=== PATIENT | female | born 1980 | race Caucasian/White ===

== ENCOUNTER 2016-11-29 03:36 | Emergency (ER) | payer MEDICAID ==
[~2016-11-29 03:36] MED LIST: ACET1TAB23; AMOX500C2
--- NOTE | 2016-11-29 05:21 | NUR ---
PT IS IN BED RESTING COMFORTABLY, PT ON MONITOR, MD ROSA MADE AWARE WILL CONTINUE TO MONITOR.
--- NOTE | 2016-11-29 05:22 | NUR ---
SEE DOWN TIME FORM
--- NOTE | 2016-11-29 05:28 | NUR ---
PT AOX3, AMBULATORY TO RESTROOM. URINE COLLECTED. CALLED LAB FOR INJECTION OPERATOR.
--- NOTE | 2016-11-29 05:53 | NUR ---
Patient discharged to home in stable condition. Written and verbal after care instructions given. Patient verbalizes understanding of instruction.IV removed. Catheter intact and site benign. Pressure and 4x4 applied to site. No bleeding noted.
[2016-11-29 05:54] VITALS: BP 118/84
--- NOTE | 2016-11-29 05:57 | NUR ---
PT IS CURING AT STAFF AND REFUSING TO LEAVE THE BED SECURITY HAS BEEN CALLED AND IN THE ROOM NOW MADE AWARE
--- NOTE | 2016-11-29 06:25 | NUR ---
PT WALKED OUT OF THE ER WITH FAMILY [employer] WAS CALLED BUT PATIENT LEFT BEFORE THEY SHOWED UP
[2016-11-29 09:35] LABS: PROTHROMBIN TIME 9.5 SECS (9.5-12.7)
[2016-11-29 09:37] LABS: INR 0.91 (0.87-1.13)
[2016-11-29 09:39] LABS: HEMATOCRIT 36 % (33-45); MEAN CORPUSCULAR VOLUME 82 fL (82-100); RED BLOOD CELL COUNT(AUTO) 4.33 MIL/uL (4.0-5.2); WHITE BLOOD COUNT (AUTO) 5.3 K/uL (4.3-11.0)
[2016-11-29 09:40] LABS: BASOPHILS % (AUTO) 0.6 % (0.0-2.0); EOSINOPHILS # (AUTO) 0.2 /CMM (0.0-0.7); EOSINOPHILS % (AUTO) 3.3 % (0.0-6.0); LYMPHOCYTES # (AUTO) 1.8 /CMM (0.8-4.8); LYMPHOCYTES % (AUTO) 33.3 % (20.0-44.0); MEAN CORPUSCULAR HEMOGLOBIN 28 PG (26.0-33.0); MEAN CORPUSCULAR HGB CONC 34 g/dl (31.0-36.0); MONOCYTES # (AUTO) 0.3 /CMM (0.1-1.30); MONOCYTES % (AUTO) 6.2 % (2.0-12.0); NEUTROPHILS % (AUTO) 56.6 % (43.0-81.0); PLATELET COUNT (AUTO) 271 /CMM (150-450); RDW COEFFICIENT OF VARIATION 13.7 (11.5-15.0)
[2016-11-29 10:07] LABS: ALBUMIN 3.8 g/dL (3.4-5.0); BILIRUBIN,TOTAL 0.2 mg/dL (0.2-1.0); TOTAL PROTEIN, SERUM 7.7 g/dL (6.4-8.2)
[2016-11-29 10:08] LABS: CALCIUM, SERUM 9.2 mg/dL (8.5-10.1); CREATININE 0.8 mg/dL (0.6-1.3); POTASSIUM 4.1 mmol/L (3.5-5.1)
== END 2016-11-29 06:27 | disposition home or self-care (01) ==
LOC: ER 03:36
DX: R40.4 Transient alteration of awareness (principal); F10.129 Alcohol abuse with intoxication, unspecified; R79.1 Abnormal coagulation profile
CPT/HCPCS: 36415; 70450; 80053; 82550; 85025; 85610; 99285; A4606; G0480; Z7610

== ENCOUNTER 2019-03-13 17:32 | Emergency (ER) | payer SELFPAY ==
[~2019-03-13] VITALS: Ht 167.6 cm; Wt 71.7 kg
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
--- NOTE | 2019-03-13 18:07 | NUR ---
DR DOAN AT BEDSIDE
--- NOTE | 2019-03-13 18:12 | NUR ---
[employer] AT BEDSIDE FOR INVESTIGATION
[2019-03-13] MEDS ORDERED: diphenhydrAMINE HCL 50 MG/ML VIAL ONE (18:19)
[2019-03-13] MEDS ORDERED: OLANZAPINE 10 MG VIAL IM ONE ×2 (18:19→18:30)
--- NOTE | 2019-03-13 18:22 | NUR ---
PATIENT TRANSFERRED TO BED 6, RESTRAINTS APPLIED PER DR KEITH VERBAL ORDER.
[2019-03-13] MEDS ORDERED: diphenhydrAMINE HCL 50 MG/ML VIAL IM ONE (18:30)
[2019-03-13] MEDS ORDERED: IV NS 0.9% 1,000 ML BAG IV ONE (18:30)
[2019-03-13] MEDS ORDERED: ONDANSETRON HCL/PF 4 MG/2 ML VIAL IVP ONE (18:30)
--- NOTE | 2019-03-13 18:41 | NUR ---
PATIENT ASKED FOR A LITLLE OF TIME TO CALM DOWN BEFORE GIVEONG THE IM MEDICATION. PROVIDED PATIENT TIME TO CALM DOWN.
[2019-03-13] MEDS ORDERED: ONDANSETRON HCL/PF 4 MG/2 ML VIAL ONE (18:43)
--- NOTE | 2019-03-13 18:45 | NUR ---
PATIENT STATRTED TO BE VERBALLY AGGRESSIVE AGAIN, HOWEVER W 5-10 MINUTES OF CONVERSATION PATIENT CALMED DOWN AND ALLOWED IV INSERTION, BLOOD DRAW AND EKG.
--- NOTE | 2019-03-13 18:48 | NUR ---
PATIENT STATRTED TO BE VERBALLY AGGRESSIVE. DOESN'T WANT ANYBODY IN THE ROOM. DOESN'T ALLOW ANYBODY TO TOUCH HER.
[2019-03-13 18:54] LABS: BASOPHILS % (AUTO) 0.5 % (0.0-2.0); EOSINOPHILS % (AUTO) 0.8 % (0.0-6.0); HEMATOCRIT 39 % (33-45); HEMOGLOBIN 13.1 g/dL (11.5-14.8); LYMPHOCYTES # (AUTO) 1.7 /CMM (0.8-4.8); MEAN CORPUSCULAR HGB CONC 34 g/dl (31.0-36.0); MEAN CORPUSCULAR VOLUME 85 fL (82-100); MONOCYTES # (AUTO) 0.3 /CMM (0.1-1.30); MONOCYTES % (AUTO) 5.5 % (2.0-12.0); NEUTROPHILS # (AUTO) 3.7 /CMM (1.8-8.9); NEUTROPHILS % (AUTO) 64.2 % (43.0-81.0); PLATELET COUNT (AUTO) 243 /CMM (150-450); RED BLOOD CELL COUNT(AUTO) 4.58 MIL/uL (4.0-5.2); WHITE BLOOD COUNT (AUTO) 5.7 K/uL (4.3-11.0)
--- NOTE | 2019-03-13 18:54 | NUR ---
Douglas abbott in ED - 03/13/19 at 1940 by JAVAD PATIENT STATRTED TO BE VERBALLY AGGRESSIVE AGAIN, HOWEVER W 5-10 MINUTES OF CONVERSATION PATIENT CALMED DOWN AND ALLOWED IV INSERTION, BLOOD DRAW AND EKG.
--- NOTE | 2019-03-13 19:02 | NUR ---
URINE COLLECTED AND SENT TO LAB
[2019-03-13 19:11] LABS: CALCIUM, SERUM 9.4 mg/dL (8.5-10.1); CREATININE 0.8 mg/dL (0.6-1.3); POTASSIUM 3.5 mmol/L (3.5-5.1)
[2019-03-13 19:19] LABS: ALBUMIN 3.9 g/dL (3.4-5.0); BILIRUBIN,DIRECT 0.1 mg/dL (0.0-0.2); BILIRUBIN,TOTAL 0.3 mg/dL (0.2-1.0); SALICYLATE 0.2 mg/dL (2.8-20.0); TOTAL PROTEIN, SERUM 7.7 g/dL (6.4-8.2)
--- NOTE | 2019-03-13 19:33 | NUR ---
06 POISON CONTROL CALLED POISON CONTROL. INSTRUCTIONS THAT WERE LEFT. NV POSITIVE WILL BE NORMAL BE ON THE LOOKOUT FOR IRRITATION OF THROAT AND GI ISSUES. LOOKOUT FOR ELECTROLYTE IMBALANCE PO CHALLENGE AND LOOKOUT FOR SIGNIFICANT IRRITATION OF THROAT LOOKOUT FOR STRIDOR AND CHANGES TO VOICE, THERE MIGHT BE MADRIGAL. IF POSITIVE MADRIGAL CONSIDER GI CONSULT BASIC LABS METABOLIC PANNEL NOW LABS, URINE, TOXICOLOGY. PSYCH CONSULT IN 4 HOURS REPEAT METABOLIC PANNEL SO SHE DOESNT HAVE ELECTROLYTE IMBALANCE. 6 TOTAL HOURS POST [id number].
--- NOTE | 2019-03-13 19:35 | NUR ---
REPORT RECEIVED FROM DYAN ALEXIS FOR [facility]
[2019-03-13 19:40] LABS: APPEARANCE,URINE Clear (CLEAR); BILIRUBIN,URINE Negative (NEGATIVE); BLOOD, URINE Trace-lysed Ery/uL (NEGATIVE); COLOR,URINE Yellow (YELLOW); KETONES,URINE Negative (NEGATIVE); LEUKOCYTE ESTERASE ,URINE Negative (NEGATIVE); NITRITE, URINE Negative (NEGATIVE); PROTEIN,URINE Negative (NEGATIVE); UGLUCOSE Negative (NEGATIVE); UROBILINOGEN,URINE 0.2 EU/dL (0.2)
[2019-03-13 20:10] LABS: BACTERIA,URINE Few /HPF (None Seen); SQUAMOUS EPITHELIAL CELL,UR Few /HPF (None Seen); WBC,URINE 0-2 /HPF (0-3)
--- NOTE | 2019-03-13 21:45 | NUR ---
HOOD FITTER AT BEDSIDE FOR BLOOD DRAW. PT REFUSING AND BECOMING VERBALLY AGGRESSIVE. ATTEMPTED TO CALM PATIENT AND EXPLAIN REASON FOR REDRAW, PT REMAINS VERBALLY AGRESSIVE AND REFUSING BLOOD DRAW. MD LAU
--- NOTE | 2019-03-13 21:56 | NUR ---
posion control, spoke to vi-- rpt bmp x4hrs from initial, if everything normal. cleared from poison ctrl
[2019-03-13] MEDS ORDERED: LORAZEPAM INJ 2 MG/ML VIAL ONE (21:58)
[2019-03-13] MEDS ORDERED: LORAZEPAM INJ 2 MG/ML VIAL IM ONE (22:00)
[2019-03-13 22:49] LABS: CALCIUM, SERUM 8.5 mg/dL (8.5-10.1); CREATININE 0.7 mg/dL (0.6-1.3); POTASSIUM 3.9 mmol/L (3.5-5.1)
--- NOTE | 2019-03-14 00:39 | NUR ---
SYLVIA PT'S DAUGHTER [phone] GEORGE PT'S SON
--- NOTE | 2019-03-14 01:55 | NUR ---
CALLED [facility] FOR EVALUATION. ETA 1 HR
--- NOTE | 2019-03-14 02:56 | NUR ---
[facility] AT BEDSIDE FOR EVALAUTION
--- NOTE | 2019-03-14 04:02 | NUR ---
Patient discharged to home in stable condition. Written and verbal after care instructions given. Patient verbalizes understanding of instruction.IV removed. Catheter intact and site benign. Pressure and 4x4 applied to site. No bleeding noted.Pt ambulatory with a steady gait. Denies Hi/Si.
[2019-03-14 04:03] VITALS: BP 112/74
== END 2019-03-14 04:03 | disposition home or self-care (01) ==
LOC: ER 17:36
DX: T54.92XA Toxic effect of unspecified corrosive substance, intentional self-harm, initial encounter (principal); T14.91XA Suicide attempt, initial encounter; F10.129 Alcohol abuse with intoxication, unspecified; Y90.4 Blood alcohol level of 80-99 mg/100 ml; Z85.3 Personal history of malignant neoplasm of breast; Z85.850 Personal history of malignant neoplasm of thyroid; Z90.89 Acquired absence of other organs; Z79.899 Other long term (current) drug therapy; Y92.9 Unspecified place or not applicable
CPT/HCPCS: 36415 ×2; 71045; 80048 ×2; 80076; 80305; 80307 ×3; 80329; 81001; 85025; 93005; 96372 ×3; 96374; 99284; G0480; J1200; J2060; J2405; J3490; J7030; 81000-TC

== ENCOUNTER 2019-08-18 11:20 | Emergency (ER) | payer SELFPAY ==
[~2019-08-18] VITALS: Ht 165.1 cm; Wt 66.7 kg
[2019-08-18] MEDS ORDERED: IV NS 0.9% 1,000 ML BAG IV ONE (12:00)
[2019-08-18] MEDS ORDERED: MECLIZINE HCL 25 MG TABLET PO ONE (12:00)
[2019-08-18 12:05] LABS: BASOPHILS % (AUTO) 0.4 % (0.0-2.0); EOSINOPHILS % (AUTO) 3.1 % (0.0-6.0); HEMATOCRIT 38 % (33-45); HEMOGLOBIN 12.7 g/dL (11.5-14.8); LYMPHOCYTES # (AUTO) 1.3 /CMM (0.8-4.8); LYMPHOCYTES % (AUTO) 30.8 % (20.0-44.0); MEAN CORPUSCULAR HGB CONC 33 g/dl (31.0-36.0); MEAN CORPUSCULAR VOLUME 87 fL (82-100); MONOCYTES # (AUTO) 0.3 /CMM (0.1-1.30); MONOCYTES % (AUTO) 7.9 % (2.0-12.0); NEUTROPHILS # (AUTO) 2.4 /CMM (1.8-8.9); NEUTROPHILS % (AUTO) 57.8 % (43.0-81.0); PLATELET COUNT (AUTO) 230 /CMM (150-450); RED BLOOD CELL COUNT(AUTO) 4.42 MIL/uL (4.0-5.2); WHITE BLOOD COUNT (AUTO) 4.2 K/uL (4.3-11.0)
[2019-08-18] MEDS ORDERED: MECLIZINE HCL 25 MG TABLET ONE (12:06)
--- NOTE | 2019-08-18 12:18 | NUR ---
c/o dizziness x 3 days, "i feel like the room is spinning". PT AAOX4, VSS, RR EVEN & UNLABORED. DENIES CP, SOB, N/V AT THIS TIME. PT SEEN & EVAL'D BY DR. GUERRERO. MEDICATED ORDERED, PT PEDRO WELL. WILL CONT TO MONITOR.
[2019-08-18 12:28] LABS: CALCIUM, SERUM 8.8 mg/dL (8.5-10.1); CARBON DIOXIDE 27 mmol/L (21-32); CHLORIDE 103 mmol/L (98-107); CREATININE 0.8 mg/dL (0.6-1.3); GLUCOSE 87 mg/dL (74-106); POTASSIUM 4.9 mmol/L (3.5-5.1); SODIUM SERUM 138 mmol/L (136-145); UREA NITROGEN, BLOOD 13 mg/dL (7-18)
[2019-08-18] MEDS ORDERED: IOHEXOL-350 100 ML VIAL IV ONE (13:29)
[2019-08-18] MEDS ORDERED: CT SWABBABLE VALVE TRANS SET 1 EA INFUS.SET MC ONE (13:30)
[2019-08-18] MEDS ORDERED: IV NS 0.9% 250 ML IV ONE (13:30)
[2019-08-18 13:33] LABS: APPEARANCE,URINE Clear (CLEAR); BILIRUBIN,URINE Negative (NEGATIVE); BLOOD, URINE Negative Ery/uL (NEGATIVE); COLOR,URINE Yellow (YELLOW); KETONES,URINE Negative (NEGATIVE); LEUKOCYTE ESTERASE ,URINE Negative (NEGATIVE); NITRITE, URINE Negative (NEGATIVE); PH,URINE 7.5 (5.0-8.0); PROTEIN,URINE Negative (NEGATIVE); UGLUCOSE Negative (NEGATIVE); UROBILINOGEN,URINE 0.2 EU/dL (0.2)
[2019-08-18] MEDS ORDERED: LORAZEPAM INJ 2 MG/ML VIAL IV ONE (14:00)
[2019-08-18] MEDS ORDERED: LORAZEPAM INJ 2 MG/ML VIAL ONE (14:07)
--- NOTE | 2019-08-18 14:10 | NUR ---
PT TO CT ON [place]
--- NOTE | 2019-08-18 14:33 | NUR ---
PT BACK FROM CT. MEDICATED PER ERMD ORDER, PT PEDRO WELL.
--- NOTE | 2019-08-18 15:32 | NUR ---
Patient discharged to home in stable condition. Written and verbal after care instructions given. Patient verbalizes understanding of instruction. IV removed. Catheter intact and site benign. Pressure and 4x4 applied to site. No bleeding noted.
[2019-08-18 15:44] VITALS: BP 126/74
== END 2019-08-18 15:45 | disposition home or self-care (01) ==
LOC: ER 11:24
DX: R42 Dizziness and giddiness (principal); R11.2 Nausea with vomiting, unspecified; E03.9 Hypothyroidism, unspecified; Z98.890 Other specified postprocedural states; Z79.899 Other long term (current) drug therapy; Z85.3 Personal history of malignant neoplasm of breast
CPT/HCPCS: 36415; 70450; 70496; 70498; 71045; 80048; 81001; 84484; 84703; 85025; 85730; 96361; 96374; 99285; J2060; J7030; J7050; J8597; Q9967; 81000-TC

== ENCOUNTER 2019-09-11 23:33 | Emergency (ER) | payer SELFPAY ==
[~2019-09-11] VITALS: Ht 165.1 cm; Wt 59.0 kg
[2019-09-12] VITALS: BP 118/87
--- NOTE | 2019-09-12 00:26 | NUR ---
EMT AT BEDSIDE FOR WOUND CARE
[2019-09-12] MEDS ORDERED: oxyCODONE/APAP (5/325 MG) 1 UDTAB TABLET ONE ×2 (00:29→03:02)
[2019-09-12] MEDS ORDERED: TDAP [DIPH/PERTUSSIS/TET] 0.5 ML VIAL IM ONE ×2 (00:29→00:30)
[2019-09-12] MEDS ORDERED: oxyCODONE/APAP (5/325 MG) 1 UDTAB TABLET PO ONE ×2 (00:30→03:00)
--- NOTE | 2019-09-12 00:40 | NUR ---
XRAY AT BEDSIDE
[2019-09-12] MEDS ORDERED: LIDOCAINE /MPF 1% VIAL 5 ML VIAL ONE (00:53)
[2019-09-12] MEDS ORDERED: MORPHINE SULFATE INJ 4 MG/ML DISP.SYRIN ONE (01:38)
[2019-09-12] MEDS ORDERED: MORPHINE SULFATE INJ 2 MG/ML DISP.SYRIN ONE (01:38)
[2019-09-12] MEDS ORDERED: LIDOCAINE 1%-EPI 1:100,000 20 ML VIAL ONE (01:39)
[2019-09-12] MEDS ORDERED: LIDOCAINE HCL/MPF 1% 30 ML VIAL IJ ONE (01:41)
--- NOTE | 2019-09-12 01:46 | NUR ---
MORHPINE 6MG IM VERBAL ORDER PER MD TAN ORDER.
[2019-09-12] MEDS ORDERED: MORPHINE SULFATE INJ 2 MG/ML DISP.SYRIN IV ONE (02:00)
[2019-09-12] MEDS ORDERED: MORPHINE SULFATE INJ 2 MG/ML DISP.SYRIN IM ONE (02:00)
--- NOTE | 2019-09-12 02:28 | NUR ---
DR MADDOX AT BEDSIDE
--- NOTE | 2019-09-12 03:09 | NUR ---
Patient discharged to home in stable condition. Written and verbal after care instructions given. Patient verbalizes understanding of instruction. PT ambulatory with a steady gait
== END 2019-09-12 03:10 | disposition home or self-care (01) ==
LOC: ER 23:36
DX: S61.310A Laceration without foreign body of right index finger with damage to nail, initial encounter (principal); Z98.890 Other specified postprocedural states; Z85.3 Personal history of malignant neoplasm of breast; W23.0XXA Caught, crushed, jammed, or pinched between moving objects, initial encounter; Y93.89 Activity, other specified; Y92.89 Other specified places as the place of occurrence of the external cause; Y99.8 Other external cause status
CPT/HCPCS: 11760; 73130; 90471; 90715; 96372; 99285; A6403; J2270 ×2; J3490 ×3

== ENCOUNTER 2021-04-14 21:09 | Emergency (ER) | payer OTHER ==
[~2021-04-14] VITALS: Ht 165.1 cm; Wt 54.4 kg
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
[2021-04-14] MEDS ORDERED: BACITRACIN ZINC OINT PACKET 1 EA PACKET TP ONE (21:43)
[2021-04-14] MEDS ORDERED: TDAP [DIPH/PERTUSSIS/TET] 0.5 ML VIAL IM ONE ×3 (21:43→22:00)
[2021-04-14] MEDS ORDERED: BACI/NEOM/POLY B OINT PKT 1 UDPKT PACKET ONE (21:46)
[2021-04-14] MEDS ORDERED: HYDROCODONE/APAP 5/325MG TABLET ONE (21:46)
--- NOTE | 2021-04-14 21:49 | NUR ---
WOUND CARE DONE TO PATIENT'S RIGHT FOOT
[2021-04-14] MEDS ORDERED: BACI/NEOM/POLY B OINT PKT 1 UDPKT PACKET TP ONE (22:00)
[2021-04-14] MEDS ORDERED: HYDROCODONE/APAP 5/325MG TABLET PO ONE (22:00)
--- NOTE | 2021-04-14 22:02 | NUR ---
[employer]ICE INSTALLER AT PT'S BEDSIDE
[2021-04-14] MEDS ORDERED: CIPR-262 PO (22:50)
--- NOTE | 2021-04-14 23:54 | NUR ---
Patient discharged to home in stable condition. rx Written and verbal after care instructions given. Patient verbalizes understanding of instruction.
[2021-04-15 01:08] VITALS: BP 154/98
== END 2021-04-14 23:50 | disposition home or self-care (01) ==
LOC: ER 21:11
DX: S91.331A Puncture wound without foreign body, right foot, initial encounter (principal); Z98.890 Other specified postprocedural states; W22.8XXA Striking against or struck by other objects, initial encounter; Y93.89 Activity, other specified; Y92.89 Other specified places as the place of occurrence of the external cause; Y99.8 Other external cause status
CPT/HCPCS: 73630-TC; 90715

== ENCOUNTER 2021-06-18 03:42 | Emergency (ER) | payer OTHER ==
[~2021-06-18 03:42] MED LIST changes: +CIPR-262 PO
== END 2021-06-18 04:00 | disposition left against medical advice (07) ==
LOC: ER 03:47
DX: Z53.21 Procedure and treatment not carried out due to patient leaving prior to being seen by health care provider (principal)

== ENCOUNTER 2021-10-10 22:58 | Emergency (ER) | payer OTHER ==
[~2021-10-10] VITALS: Ht 157.5 cm; Wt 62.6 kg
[2021-10-10 23:12] VITALS: BP 125/81
--- NOTE | 2021-10-10 23:21 | NUR ---
Patient discharged to home in stable condition. Written and verbal after care instructions given. Patient verbalizes understanding of instruction.
== END 2021-10-10 23:21 | disposition home or self-care (01) ==
LOC: ER 23:01
DX: F40.218 Other animal type phobia (principal); Z98.890 Other specified postprocedural states